=== PATIENT | male | born 1985 | race Two or more races ===

== ENCOUNTER → 2018-12-01 | Outpatient (CLI) | payer BC ==
[2018-12-01 08:14] LABS: Basophils # (auto) 0.1 uL; Basophils % (auto) 1.5 % (0.0-2.0); Eosinophils # (auto) 0.2 uL; Eosinophils % (auto) 4.4 % (0.0-7.0); Hematocrit 46.6 % (41.0-53.0); Hemoglobin 15.8 g/dL (13.5-17.5); Lymphocytes # (auto) 1.2 uL; Lymphocytes % (auto) 24.1 % (10.0-50.0); Mean Corpuscular Hgb Conc. 33.9 g/dL (32.0-36.0); Mean Corpuscular Volume 85.4 fL (80.0-100.0); Monocytes # (auto) 0.4 uL; Monocytes % (auto) 7.5 % (0.0-12.0); Neutrophils # (auto) 3.1 uL; Neutrophils % (auto) 62.5 % (37.0-80.0); Nucleated Red Blood Cells % 0.1 %; Platelet Count (auto) 299 10^3/uL (140-450); Red Blood Cells 5.46 10^6/uL (4.5-5.90); Red Cell Distribution Width 13.2 % (11.8-14.3); White Blood Cell 4.9 10^3/uL (4.4-10.8)
[2018-12-01 08:50] LABS: Albumin 3.9 g/dL (3.4-5.0); Potassium 4.2 mmol/L (3.5-5.1)
[2018-12-01 08:53] LABS: BUN/Creatinine Ratio 16.5; Bilirubin, Total 0.5 mg/dL (0.2-1.0); Total Protein 7.1 g/dL (6.4-8.2)
== END | disposition home or self-care (01) ==
LOC: LAB 07:49
PROVIDERS: ATTEND Internal Medicine
DX: Z00.00 Encounter for general adult medical examination without abnormal findings (principal)
CPT/HCPCS: 36415; 80053; 80061; 82306; 84443; 85025

== ENCOUNTER 2019-10-17 10:04 | Emergency (ER) | payer BC ==
[~2019-10-17] VITALS: Ht 180.3 cm; Wt 81.6 kg
[2019-10-17 10:21] LABS: Urine WBC None Seen /hpf (0 - 3)
[2019-10-17 10:29] LABS: Basophils # (auto) 0 10 ^3/uL (0-0.2); Basophils % (auto) 0.4 % (0.0-2.0); Eosinophils # (auto) 0.1 10 ^3/uL (0-0.8); Eosinophils % (auto) 2.3 % (0.0-7.0); Hematocrit 50.5 % (41.0-53.0); Hemoglobin 17.1 g/dL (13.5-17.5); Lymphocytes # (auto) 1.4 10 ^3/uL (0.4-5.4); Lymphocytes % (auto) 25.4 % (10.0-50.0); Mean Corpuscular Hemoglobin 29.2 pg (28.0-32.0); Mean Corpuscular Hgb Conc. 33.9 g/dL (32.0-36.0); Monocytes # (auto) 0.5 10 ^3/uL (0-1.3); Neutrophils # (auto) 3.4 10 ^3/uL (1.6-8.6); Neutrophils % (auto) 61.9 % (37.0-80.0); Nucleated Red Blood Cells % 0.1 %; Platelet Count (auto) 312 10^3/uL (140-450); Red Blood Cells 5.87 10^6/uL (4.5-5.90); Red Cell Distribution Width 12.8 % (11.8-14.3); White Blood Cell 5.4 10^3/uL (4.4-10.8)
[2019-10-17 10:33] LABS: Urine Bacteria NONE SEEN /hpf (None Seen); Urine Blood Negative /uL (Negative); Urine Specific Gravity 1.006 (1.001-1.035)
[2019-10-17 10:50] LABS: Alanine Aminotransferase 51 U/L (16-61); Albumin 4.2 g/dL (3.4-5.0); Anion Gap 7 (5-15); Aspartate Aminotransferase 25 U/L (15-37); Blood Urea Nitrogen 15 mg/dL (7-18); Calcium 8.8 mg/dL (8.5-10.1); Carbon Dioxide 27 mmol/L (21-32); Chloride 106 mmol/L (98-107); Glucose 113 mg/dL (74-106); Potassium 4.4 mmol/L (3.5-5.1); Sodium 140 mmol/L (136-145)
[2019-10-17 10:54] LABS: Alkaline Phosphatase 51 U/L (45-117); BUN/Creatinine Ratio 14.4; Bilirubin, Total 0.4 mg/dL (0.2-1.0); GFR African American 106 mL/min; GFR Non-African American 88 mL/min; Total Protein 7.7 g/dL (6.4-8.2)
[2019-10-17 13:59] VITALS: BP 112/68
== END 2019-10-17 14:08 | disposition home or self-care (01) ==
LOC: ER 10:04
DX: R07.89 Other chest pain (principal); F41.9 Anxiety disorder, unspecified
CPT/HCPCS: 36415; 71046; 80053; 81001; 83735; 84443; 84484; 85025; 93005

== ENCOUNTER → 2019-11-02 | Emergency (ER) | payer BC ==
[~2019-11-02] VITALS: Ht 177.8 cm; Wt 81.6 kg
[2019-11-02 15:03] VITALS: BP 116/78
[2019-11-02 15:13] LABS: Basophils # (auto) 0 10 ^3/uL (0-0.2); Basophils % (auto) 0.4 % (0.0-2.0); Eosinophils # (auto) 0.1 10 ^3/uL (0-0.8); Eosinophils % (auto) 1.3 % (0.0-7.0); Hematocrit 48.5 % (41.0-53.0); Hemoglobin 16.3 g/dL (13.5-17.5); Lymphocytes # (auto) 1.5 10 ^3/uL (0.4-5.4); Lymphocytes % (auto) 21.7 % (10.0-50.0); Mean Corpuscular Hemoglobin 28.9 pg (28.0-32.0); Mean Corpuscular Hgb Conc. 33.6 g/dL (32.0-36.0); Mean Corpuscular Volume 86.1 fL (80.0-100.0); Monocytes # (auto) 0.6 10 ^3/uL (0-1.3); Neutrophils # (auto) 4.8 10 ^3/uL (1.6-8.6); Neutrophils % (auto) 68.6 % (37.0-80.0); Nucleated Red Blood Cells % 0.1 %; Platelet Count (auto) 305 10^3/uL (140-450); Red Blood Cells 5.63 10^6/uL (4.5-5.90); Red Cell Distribution Width 12.6 % (11.8-14.3)
[2019-11-02 15:22] LABS: Albumin 4.1 g/dL (3.4-5.0); Anion Gap 6 (5-15); Blood Urea Nitrogen 11 mg/dL (7-18); Calcium 8.6 mg/dL (8.5-10.1); Carbon Dioxide 27 mmol/L (21-32); Chloride 105 mmol/L (98-107); Glucose 94 mg/dL (74-106); Potassium 3.9 mmol/L (3.5-5.1); Sodium 138 mmol/L (136-145)
[2019-11-02 15:29] LABS: Alanine Aminotransferase 40 U/L (16-61); Alkaline Phosphatase 43 U/L (45-117); Aspartate Aminotransferase 17 U/L (15-37); BUN/Creatinine Ratio 9.6; Bilirubin, Total 0.7 mg/dL (0.2-1.0); GFR African American 94 mL/min; GFR Non-African American 78 mL/min; Total Protein 7.4 g/dL (6.4-8.2)
== END | disposition home or self-care (01) ==
LOC: ER 14:37
DX: R07.89 Other chest pain (principal); F41.9 Anxiety disorder, unspecified
CPT/HCPCS: 36415; 71046; 80053; 84484; 85025; 93005

== ENCOUNTER → 2023-10-24 | Outpatient (CLI) | payer BC ==
[2023-10-24 08:16] LABS: Urine Bacteria None Seen /hpf (None Seen); Urine WBC None Seen /hpf (0 - 3)
[2023-10-24 08:20] LABS: Basophils # (auto) 0 10 ^3/uL (0-0.2); Basophils % (auto) 0.7 % (0.0-2.0); Eosinophils # (auto) 0.2 10 ^3/uL (0-0.8); Eosinophils % (auto) 3.2 % (0.0-7.0); Hematocrit 44.3 % (41.0-53.0); Hemoglobin 15.1 g/dL (13.5-17.5); Lymphocytes # (auto) 1.2 10 ^3/uL (0.4-5.4); Lymphocytes % (auto) 24.7 % (10.0-50.0); Mean Corpuscular Hemoglobin 29.8 pg (28.0-32.0); Mean Corpuscular Volume 87.7 fL (80.0-100.0); Monocytes # (auto) 0.5 10 ^3/uL (0-1.3); Monocytes % (auto) 9.8 % (0.0-12.0); Neutrophils # (auto) 3.1 10 ^3/uL (1.6-8.6); Neutrophils % (auto) 61.6 % (37.0-80.0); Red Blood Cells 5.06 10^6/uL (4.5-5.90); Red Cell Distribution Width 13.2 % (11.8-14.3)
[2023-10-24 08:23] LABS: Urine Blood Negative /uL (Negative); Urine Clarity Clear (Clear); Urine Color Colorless (Yellow); Urine Protein, UAD Negative (Negative); Urine Specific Gravity 1.002 (1.001-1.035); Urine Urobilinogen Normal (Negative); Urine pH 5.5 (5.0-9.0)
[2023-10-24 09:29] LABS: Alanine Aminotransferase 48 U/L (7-40); Albumin 4.5 g/dL (3.2-4.8); Alkaline Phosphatase 39 U/L (46-116); Anion Gap 9 (5-15); Aspartate Aminotransferase 28 U/L (13-40); BUN/Creatinine Ratio 12.2 (10.0-20.0); Bilirubin, Total 0.7 mg/dL (0.2-1.0); Blood Urea Nitrogen 11 mg/dL (9-23); Calcium 9.4 mg/dL (8.5-10.1); Carbon Dioxide 23 mmol/L (20-30); Chloride 107 mmol/L (98-107); Cholesterol 206 mg/dL (< 200); Glucose 99 mg/dL (74-106); HDL Cholesterol 58 mg/dL (40-59); LDL Cholesterol 130 mg/dL (< 100); Sodium 139 mmol/L (136-145); Total Protein 6.6 g/dL (5.7-8.2); Triglycerides 76 mg/dL (< 150)
== END | disposition home or self-care (01) ==
LOC: LAB 08:01
PROVIDERS: ATTEND Internal Medicine
DX: Z00.01 Encounter for general adult medical examination with abnormal findings (principal); E55.9 Vitamin D deficiency, unspecified; F10.10 Alcohol abuse, uncomplicated
CPT/HCPCS: 36415; 80053; 80061; 81001; 82306; 83036; 84439; 84443; 85025

== ENCOUNTER → 2024-01-24 | Outpatient (CLI) | payer BC ==
[2024-01-24 08:14] LABS: Albumin 4.3 g/dL (3.2-4.8); Bilirubin, Direct 0.2 mg/dL (<0.3); Bilirubin, Total 0.7 mg/dL (0.2-1.0)
[2024-01-24 08:15] LABS: Total Protein 6.4 g/dL (5.7-8.2)
== END | disposition home or self-care (01) ==
LOC: LAB 07:35
PROVIDERS: ATTEND Student in an Organized Health Care Education/Training Program
DX: B35.1 Tinea unguium (principal)
CPT/HCPCS: 36415; 80076

== ENCOUNTER 2024-09-29 22:38 | Inpatient (IN) | payer BC ==
[~2024-09-29] VITALS: Ht 177.8 cm; Wt 75.7 kg
[2024-09-29] MEDS: DICYCLOMINE HCL (10MG/ML) 2 ML AMPULE IM ONE (23:25)
[2024-09-29] MEDS: ONDANSETRON ODT 4 MG TAB PO ONE (23:25)
[2024-09-29 23:33] LABS: Basophils # (auto) 0 10 ^3/uL (0-0.2); Eosinophils # (auto) 0 10 ^3/uL (0-0.8); Eosinophils % (auto) 0.1 % (0.0-7.0); Hematocrit 48.4 % (41.0-53.0); Hemoglobin 16.5 g/dL (13.5-17.5); Lymphocytes # (auto) 0.7 10 ^3/uL (0.4-5.4); Lymphocytes % (auto) 4.8 % (10.0-50.0); Mean Corpuscular Hemoglobin 29.4 pg (28.0-32.0); Mean Corpuscular Hgb Conc. 34.2 g/dL (32.0-36.0); Monocytes % (auto) 6.9 % (0.0-12.0); Neutrophils # (auto) 12.6 10 ^3/uL (1.6-8.6); Neutrophils % (auto) 88.2 % (37.0-80.0); Platelet Count (auto) 362 10^3/uL (140-450); Red Blood Cells 5.63 10^6/uL (4.5-5.90); Red Cell Distribution Width 12.8 % (11.8-14.3); White Blood Cell 14.3 10^3/uL (4.4-10.8)
--- NOTE | 2024-09-29 23:49 | DVH ---
Indication: Diffuse bilateral upper abdominal pain Technique: CT axial images of the abdomen and pelvis are obtained without contrast. Coronal and sagit tarun reformats were obtained. Radiation Dose Information: CTDI volume is 6 mGy. Dose-length product is 465 mGy*cm Comparison: None FINDINGS: There is limited interpretation of the abdomen and pelvis without administration of intravenous contr ast. The lung bases demonstrate no pleural effusion. Adrenal glands, spleen, pancreas unremarkable in shape. Liver unremarkable in shape. No CT evidence for cholelithiasis. The bilateral kidneys demonstrate no hydronephrosis or nephrolithiasis. Stomach is partially distended. Small bowel loops are demonstrating moderate distention in the left a bdomen up to 2.8 cm. Moderate volume stool in the colon. Normal appendix. Bladder partially distended. No free pelvic fluid. No inguinal lymphadenopathy. No aggressive osseous process. Mild thoracolumbar degenerative disc disease. IMPRESSION: 1. No evidence for obstructive uropathy. 2. Moderate distention of small-bowel loops in the left abdomen up to 2.8 cm, which could be secondar y to ileus.
[2024-09-29 23:58] LABS: Alanine Aminotransferase 24 U/L (7-40); Anion Gap 10 (5-15); Aspartate Aminotransferase 18 U/L (13-40); BUN/Creatinine Ratio 10.5 (10.0-20.0); Bilirubin, Total 0.9 mg/dL (0.2-1.0); Blood Urea Nitrogen 12 mg/dL (9-23); Calcium 9.9 mg/dL (8.7-10.4); Carbon Dioxide 25 mmol/L (20-31); Chloride 104 mmol/L (98-107); Sodium 139 mmol/L (136-145); Total Protein 7.1 g/dL (5.7-8.2)
[2024-09-30] VITALS (7 sets, daily range): BP systolic 102–138; BP diastolic 58–85; PULSE 64–78; RESP 16–18; TEMP 97.8–98.7; O2SAT 95–98
[2024-09-30 00:09] LABS: Alkaline Phosphatase 42 U/L (46-116); Glucose 126 mg/dL (74-106); Lipase 102 U/L (12-53); Potassium 3.4 mmol/L (3.5-5.1)
[2024-09-30] MEDS ORDERED: HYDROmorphone HCL 2 MG/ML VL/or syr IV ONE (02:00)
--- NOTE | 2024-09-30 02:07 | ED.PDOC ---
GI ASSESSMENT HPI Comments Patient is a an otherwise healthy 38-year-old male who arrives the ED today for evaluation of bilateral upper belly pain for the past two days. Patient states the pain came on and has been relatively unrelenting. Patient states pain has been severe at night to the point where he can sleep. Patient has been food intolerant and has been barely able to utilize ice chips for the past two days. Patient denies any fever but states extensive nausea and vomiting. Vital signs were stable on arrival. Patient denies any history of intra-abdominal concerns including pancreatic or liver issues. Chief Complaint: Abdominal Pain Time Seen by MD: 22:45 Primary Care Provider: Rachael CALVILLO Reviewed Notes: Nurses Notes Allergies: Coded Allergies: NO KNOWN ALLERGIES (Unverified , 11/02/19) Information Source: Patient Mode of Arrival: Ambulatory Timing: Days Duration: Since onset Prehospital treatment: None Quality: Aching, Burning, Cramping Vomitus: Bilious, Food Particles, Soft, Watery Severity: Moderate Recent: None Recent Hx of: None Pain Location: Diffuse, Epigastric, RUQ, LUQ Modifying Factors: Food Associated sign and symptoms: Nausea, Vomiting, Abdominal Pain Past Medical History PAST MEDICAL HISTORY: Denies Surgical History: Denies all surgeries Family History Family History: Reviewed,noncontributory to illness Social History Smoker: Non-Smoker Alcohol: Occasionally Drugs: Denies Drug Use Lives In: Home Constitutional: denies: chills, diaphoresis, fatigue, fever, malaise, sweats, weakness, others EENTM: denies: blurred vision, double vision, ear bleeding, ear discharge, ear drainage, ear pain, ear ringing, eye pain, eye redness, hearing loss, mouth pain, mouth swelling, nasal discharge, nose bleeding, nose congestion, nose pain, photophobia, tearing, throat pain, throat swelling, voice changes, others Respiratory: denies: cough, hemoptysis, orthopnea, SOB at rest, shortness of breath, SOB with excertion, stridor, wheezing, others Cardiovascular: denies: chest pain, dizzy spells, diaphoresis, Dyspnea on exertion, edema, irregular heart beat, left arm pain, lightheadedness, palpitations, PND, syncope, others Gastrointestinal: reports: abdominal pain, nausea, vomiting; denies: abdomen distended, blood streaked bowels, constipated, diarrhea, dysphagia, difficulty swallowing, hematemesis, melena, poor appetite, poor fluid intake, rectal bleeding, rectal pain, others Genitourinary: denies: burning, dysuria, flank pain, frequency, hematuria, incontinence, penile discharge, penile sore, pain, testicle pain, testicle swelling, urgency, others Neurological: denies: dizziness, fainting, headache, left sided numbness, left sided weakness, numbness, paresthesia, pre-existing deficit, right sided numbness, right sided weakness, seizure, speech problems, tingling, tremors, weakness, others Musculoskeletal: denies: back pain, gout, joint pain, joint swelling, muscle pain, muscle stiffness, neck pain, others Integumetry: denies: bruises, change in color, change in hair/nails, dryness, laceration, lesions, lumps, rash, wounds, others Allergic/Immunocompromised: denies: Difficulty Healing, Frequent Infections, Hives, Itching, others Hematologic/Lymphatic: denies: anemia, blood clots, easy bleeding, easy bruising, swollen glands, others Endocrine: denies: excessive hunger, excessive sweating, excessive thirst, excessive urination, flushing, intolerance to cold, intolerance to heat, unexplained weight gain, unexplained weight loss, others Psychiatric: denies: anxiety, bipolar disorder, depression, hopeless, panic disorder, schizophrenia, sleepless, suicidal, others Physical Exam General Appearance: Moderate Distress (Due to abdominal pain concerns.), Normal HEENT: Normal ENT Inspection, Pharynx Normal, TMs Normal Neck: Full Range of Motion, Non-Tender, Normal, Normal Inspection Respiratory: Chest Non-Tender, Lungs Clear, No Accessory Muscle Use, No Respiratory Distress, Normal Breath Sounds Cardiovascular: No Edema, No JVD, No Murmur, No Gallop, Normal Peripheral Pulses, Regular Rate/Rhythm Breast Exam: Deferred Gastrointestinal: Other ( Diffuse epigastric tenderness to palpation bilaterally. Abdomen was mildly rigid. No pulsatile masses.) Genitalia: Deferred Pelvic: Deferred Rectal: Deferred Extremities: No calf tenderness, Normal capillary refill, Normal inspection, Normal range of motion, Non-tender, No pedal edema Neurologic: Alert, No Motor Deficits, Normal Affect, Normal Mood, No Sensory Deficits Cerebellar Function: Normal Reflexes: Normal Skin: Dry, Normal Color, Warm Lymphatic: No Adenopathy Was a procedure done? Was a procedure done?: No GI differential Dx Differential Diagnosis: Aortic dissection, Bowel Obstruction, Cholangitis, Cholecystitis, Constipation, Gastritis/PUD, Gastroenteritis, Pancreatitis, UTI X-Ray, Labs, Meds, VS Vital Signs Date Time Temp Pulse Resp B/P (MAP) Pulse Ox O2 Delivery O2 Flow Rate FiO2 09/29/24 22:56 98.6 97 16 104/70 (81) 100 98.6 Lab Test 09/30/24 00:09 09/29/24 23:05 Range/Units Troponin I High Sensitivity 34 41 </=54 ng/L White Blood Count 14.3 H 4.4-10.8 10^3/uL Red Blood Count 5.63 4.5-5.90 10^6/uL Hemoglobin 16.5 13.5-17.5 g/dL Hematocrit 48.4 41.0-53.0 % Mean Corpuscular Volume 86.0 80.0-100.0 fL Mean Corpuscular Hemoglobin 29.4 28.0-32.0 pg Mean Corpuscular Hemoglobin Concent 34.2 32.0-36.0 g/dL Red Cell Distribution Width 12.8 11.8-14.3 % Platelet Count 362 140-450 10^3/uL Mean Platelet Volume 7.0 6.9-10.8 fL Neutrophils (%) (Auto) 88.2 H 37.0-80.0 % Lymphocytes (%) (Auto) 4.8 L 10.0-50.0 % Monocytes (%) (Auto) 6.9 0.0-12.0 % Eosinophils (%) (Auto) 0.1 0.0-7.0 % Basophils (%) (Auto) 0.0 0.0-2.0 % Neutrophils # (Auto) 12.6 H 1.6-8.6 10 ^3/uL Lymphocytes # (Auto) 0.7 0.4-5.4 10 ^3/uL Monocytes # (Auto) 1.0 0-1.3 10 ^3/uL Eosinophils # (Auto) 0 0-0.8 10 ^3/uL Basophils # (Auto) 0 0-0.2 10 ^3/uL Nucleated Red Blood Cells 0.0 % Sodium Level 139 136-145 mmol/L Potassium Level 3.4 L 3.5-5.1 mmol/L Chloride Level 104 98-107 mmol/L Carbon Dioxide Level 25 20-31 mmol/L Anion Gap 10 5-15 Blood Urea Nitrogen 12 9-23 mg/dL Creatinine 1.14 0.700-1.30 mg/dL Glomerular Filtration Rate Calc 85 >90 mL/min BUN/Creatinine Ratio 10.5 10.0-20.0 Serum Glucose 126 H 74-106 mg/dL Lactic Acid Level 0.9 0.4-2.0 mmol/L Calcium Level 9.9 8.7-10.4 mg/dL Total Bilirubin 0.9 0.2-1.0 mg/dL Aspartate Amino Transferase (AST) 18 13-40 U/L Alanine Aminotransferase (ALT) 24 7-40 U/L Alkaline Phosphatase 42 L 46-116 U/L Total Protein 7.1 5.7-8.2 g/dL Albumin 5.0 H 3.2-4.8 g/dL Lipase 102 H 12-53 U/L Current Medications Medications (Trade) Dose Ordered Sig/Adams Route Start Time Stop Time Status Last Admin Ondansetron HCl (Zofran Po) 4 mg ONCE ONCE PO 09/29/24 23:00 09/29/24 23:01 DC 09/29/24 23:25 Dicyclomine HCl (Bentyl Injection) 20 mg ONCE ONCE IM 09/29/24 23:00 09/29/24 23:01 DC 09/29/24 23:25 X-Ray, Labs, Meds, VS Comment All studies performed the ED were evaluated by me personally. Laboratories revealed a mild leukocytosis with a mild left shift as well as an elevated lipase indicative of pancreatitis. Imaging studies or nonspecific for pancreatitis but revealed a possible ileus. Patient will be admitted for pain management of his current acute pancreatitis. Time of 1ST Reevaluation: 02:06 Reevaluation 1ST: Improved Consultation: PCP Patient Education/Counseling: Diagnosis, Treatment Family Education/Counseling: Diagnosis, Treatment Departure 1 Departure Time of Disposition: 02:06 Impression: Primary Impression: Acute pancreatitis Disposition: 09 ADMITTED INPATIENT Condition: Stable Discharged With: Self Critical Care Note Critical Care Time?: No Stability Stability form required: No Heart Score Heart Score: Heart Score Response (Comments) Value History Slightly Suspicious 0 EKG Repolarization Disturb 1 Age <45 0 Risk Factors No known risk factors 0 Troponin Normal limit 0 Total 1 MEL LUNDBERG 30, 2025 02:07
[2024-09-30] MEDS ORDERED: MORPHINE SULFATE INJ 2 MG/ml SYRG IV PRN (04:30)
[2024-09-30] MEDS: SODIUM CHLORIDE 0.9% 1,000 ML IV ONE (04:30)
--- NOTE | 2024-09-30 04:33 | DVHHP2 ---
History of Present Illness Reason for Visit: Abdominal pain History of Present Illness 38-year-old male presents for evaluation of abdominal pain. Patient endorses a two day history of sharp abdominal pain across lower abdomen. He associates episodes of nausea with vomiting. He also reports intermittent chills. Denies cardiac or respiratory symptoms. Past Medical History Denies Past Surgical History Denies Family History Noncontributory Smoke: No ALCOHOL: occassional Drugs: None Lives: with Family Review of Systems Review of Systems Review of systems are currently negative otherwise addressed in HPI. Allergies: Coded Allergies: NO KNOWN ALLERGIES (Unverified , 11/02/19) Medications Current Medications Medications Dose Ordered Sig/Adams Route Start Time Stop Time Status Last Admin Dose Admin Pantoprazole Sodium 40 mg DAILY IV 09/30/24 10:00 UNV Ondansetron HCl 4 mg Q4HP PRN IV 09/30/24 04:30 UNV Morphine Sulfate 2 mg Q4HPRN PRN IV 09/30/24 04:30 UNV Exam Vital Signs Vital Signs Date Time Temp Pulse Resp B/P (MAP) Pulse Ox O2 Delivery O2 Flow Rate FiO2 09/30/24 02:35 77 16 95 Room Air* 0 21 21 09/30/24 01:30 98.8 135/76 (95) 98.8 Exam Gen: 38-year-old male in mild distress Skin: Warm, dry, normal color and texture, no rash. HEENT: Normocephalic atraumatic, mucous membranes moist and pink. Neck: Cervical and supraclavicular nodes normal without enlargement, trachea is midline, thyroid gland is normal without masses. Pulmonary: Clear to auscultation and percussion bilaterally. Cardiac: Regular rate and rhythm. No murmur Abdomen: Soft, lower abdominal tenderness, nondistended, bowel sounds present all 4 quadrants, no guarding, no rigidity, no organomegaly. Extremities: No cyanosis, clubbing, no edema Neuro: Cranial nerves II through XII grossly intact, normal affect and speech, no focal motor deficits. Labs/Xrays ORDERING PHYSICIAN: MEL LUNDBERG PAC PROCEDURE(s): ABPL - CT AB PEL WO CON-NO ORAL OR IV REASON: Diffuse bilateral upper abdominal pain ORDER NUMBER(s): [id number], ACCESSION NUMBER(s): [id number] Indication: Diffuse bilateral upper abdominal pain Technique: CT axial images of the abdomen and pelvis are obtained without contrast. Coronal and sagittal reformats were obtained. Radiation Dose Information: CTDI volume is 6 mGy. Dose-length product is 465 mGy*cm Comparison: None FINDINGS: There is limited interpretation of the abdomen and pelvis without administration of intravenous contrast. The lung bases demonstrate no pleural effusion. Adrenal glands, spleen, pancreas unremarkable in shape. Liver unremarkable in shape. No CT evidence for cholelithiasis. The bilateral kidneys demonstrate no hydronephrosis or nephrolithiasis. Stomach is partially distended. Small bowel loops are demonstrating moderate distention in the left abdomen up to 2.8 cm. Moderate volume stool in the colon. Normal appendix. Bladder partially distended. No free pelvic fluid. No inguinal lymphadenopathy. No aggressive osseous process. Mild thoracolumbar degenerative disc disease. IMPRESSION: 1. No evidence for obstructive uropathy. 2. Moderate distention of small-bowel loops in the left abdomen up to 2.8 cm, w hich could be secondary to ileus. Labs Test 09/30/24 00:09 09/29/24 23:05 Range/Units Troponin I High Sensitivity 34 </=54 ng/L White Blood Count 14.3 H 4.4-10.8 10^3/uL Red Blood Count 5.63 4.5-5.90 10^6/uL Hemoglobin 16.5 13.5-17.5 g/dL Hematocrit 48.4 41.0-53.0 % Mean Corpuscular Volume 86.0 80.0-100.0 fL Mean Corpuscular Hemoglobin 29.4 28.0-32.0 pg Mean Corpuscular Hemoglobin Concent 34.2 32.0-36.0 g/dL Red Cell Distribution Width 12.8 11.8-14.3 % Platelet Count 362 140-450 10^3/uL Mean Platelet Volume 7.0 6.9-10.8 fL Neutrophils (%) (Auto) 88.2 H 37.0-80.0 % Lymphocytes (%) (Auto) 4.8 L 10.0-50.0 % Monocytes (%) (Auto) 6.9 0.0-12.0 % Eosinophils (%) (Auto) 0.1 0.0-7.0 % Basophils (%) (Auto) 0.0 0.0-2.0 % Neutrophils # (Auto) 12.6 H 1.6-8.6 10 ^3/uL Lymphocytes # (Auto) 0.7 0.4-5.4 10 ^3/uL Monocytes # (Auto) 1.0 0-1.3 10 ^3/uL Eosinophils # (Auto) 0 0-0.8 10 ^3/uL Basophils # (Auto) 0 0-0.2 10 ^3/uL Nucleated Red Blood Cells 0.0 % Sodium Level 139 136-145 mmol/L Potassium Level 3.4 L 3.5-5.1 mmol/L Chloride Level 104 98-107 mmol/L Carbon Dioxide Level 25 20-31 mmol/L Anion Gap 10 5-15 Blood Urea Nitrogen 12 9-23 mg/dL Creatinine 1.14 0.700-1.30 mg/dL Glomerular Filtration Rate Calc 85 >90 mL/min BUN/Creatinine Ratio 10.5 10.0-20.0 Serum Glucose 126 H 74-106 mg/dL Lactic Acid Level 0.9 0.4-2.0 mmol/L Calcium Level 9.9 8.7-10.4 mg/dL Total Bilirubin 0.9 0.2-1.0 mg/dL Aspartate Amino Transferase (AST) 18 13-40 U/L Alanine Aminotransferase (ALT) 24 7-40 U/L Alkaline Phosphatase 42 L 46-116 U/L Total Protein 7.1 5.7-8.2 g/dL Albumin 5.0 H 3.2-4.8 g/dL Lipase 102 H 12-53 U/L Assessment/Plan Assessment/Plan Assessment Acute abdominal pain Possible ileus Leukocytosis Plan Admit the patient to [facility] to the hospitalist NPO Maintenance IV fluids Pain management GI consult Rocephin Continue treatment per orders. Plan discussed with: Patient My Orders Orders - ROB GERARD Procedure Category Date Status Time * Gi Dvh Project Landscape Architect CONS 09/30/24 Transmitted 04:26 Pantoprazole PHA 09/30/24 Logged (Protonix) 10:00 Sodium Chloride 0.9% PHA 09/30/24 Logged 04:30 Basic Metabolic Panel LAB 10/01/24 Verified 04:00 Admit ADMIT 09/30/24 Transmitted 04:26 Ondansetron Hcl PHA 09/30/24 Logged (Zofran) 04:30 Complete Blood Count LAB 10/01/24 Verified 04:00 Npo (Nothing By DIET 09/30/24 Transmitted Mouth) Diet Breakfast Condition: Stable DON 09/30/24 In Process 04:26 Bedrest With Bathroom DON 09/30/24 In Process Privileg 04:26 Morphine Sulfate PHA 09/30/24 Logged Injection 04:30 Date of Service: Sep 30, 2024 Billing Provider: ROB GERARD Common Visit Codes: [id number] INP/OBS CARE (MOD) ROB GERARD Sep 30, 2024 04:33
[2024-09-30] MEDS ORDERED: [UNRECOGNIZED DRUG - CODE] PO (06:56)
[2024-09-30] MEDS: ONDANSETRON HCL 4 MG/2 ML VIAL IV PRN (08:43)
[2024-09-30] MEDS: PANTOPRAZOLE 40 MG/10 ML VIAL INJ IV SCH (08:43)
[2024-09-30] MEDS: cefTRIAXone 1GM/50ML D5W 50 ML IV SCH (09:00)
[2024-09-30 12:16] LABS: Urine Bacteria None Seen /hpf (None Seen)
[2024-09-30 12:27] LABS: Urine Blood Negative /uL (Negative); Urine Clarity Clear (Clear); Urine Color Yellow (Yellow); Urine Mucus FEW (None Seen); Urine Protein, UAD 1+ (Negative); Urine Squamous Epithelial Cell None Seen /hpf (<5); Urine Urobilinogen Normal (Negative); Urine WBC 4 /HPF (0-3); Urine pH 6.5 (5.0-9.0)
[2024-09-30 12:59] LABS: Cannabinoid Screen, Urine Pos (NEGATIVE)
[2024-09-30 13:01] LABS: Amphetamine Screen, Urine Neg (NEGATIVE); Barbiturate Scree,Urine Neg (NEGATIVE); Benzodiazephine Screen, Urine Neg (NEGATIVE); Cocaine Screen, Urine Neg (NEGATIVE); Opiate Scree,Urine Neg (NEGATIVE); Phencyclidine Screen, Urine Neg (NEGATIVE)
[2024-09-30] MEDS: metroNIDAZOLE 500MG/100ML 100 ML IV SCH (13:03)
[2024-09-30] MEDS ORDERED: PANTOPRAZOLE 40 MG/10 ML VIAL INJ IV ONE (15:30)
--- NOTE | 2024-09-30 15:30 | DVHPN2 ---
Subjective 09/30 patient continues to have abdominal pain, decreased p.o. tolerance. Likely gastroenteritis. GI on board. CTA showing ileus. Lipase elevated. We will continue treatment with IV antibiotics, advance diet to clear liquids diet. IV fluids for resuscitation. IV pain control p.r.n. analgesia. Reviewed: H&P Changes from previous H/P or p: No Changes General: Per HPI Objective Vitals Vital Signs Date Time Temp Pulse Resp B/P (MAP) Pulse Ox O2 Delivery O2 Flow Rate FiO2 09/30/24 13:00 98.6 64 18 131/79 (96) 98 98.6 09/30/24 08:00 Room Air* 0 21 Exam GEN: Healthy appearing, well-developed, NAD. HEENT: NC/AT; MMM. CV: RRR, no m/r/g. LUNGS: CTAB, no w/r/c. ABD: Tender to palpation right lower quadrant and epigastrium, hypoactive bowel sounds EXT: skin Warm, well perfused. no rashes. No clubbing, cyanosis, or edema. NEURO: Ambulating with no limitations. No focal deficits. Medications Current Medications Medications Dose Ordered Sig/Adams Route Start Time Stop Time Status Last Admin Dose Admin Pantoprazole Sodium 40 mg DAILY IV 09/30/24 10:00 09/30/24 08:43 40 MG Ondansetron HCl 4 mg Q4HP PRN IV 09/30/24 04:30 09/30/24 08:43 4 MG Morphine Sulfate 2 mg Q4HPRN PRN IV 09/30/24 04:30 Ceftriaxone Sodium 50 ml @ 100 mls/hr DAILY@09 IV 09/30/24 09:00 09/30/24 09:00 100 MLS/HR Metronidazole 100 ml @ 100 mls/hr Q8HR IV 09/30/24 14:00 09/30/24 13:03 100 MLS/HR Laboratory Results Laboratory Tests 09/29/24 23:05 Chemistry Test 09/29/24 23:05 Albumin 5.0 g/dL (3.2-4.8) H Calcium Level 9.9 mg/dL (8.7-10.4) Total Protein 7.1 g/dL (5.7-8.2) Lipid panel Test 09/29/24 23:05 Lipase 102 U/L (12-53) H LFT Test 09/29/24 23:05 Alanine Aminotransferase (ALT) 24 U/L (7-40) Alkaline Phosphatase 42 U/L (46-116) L Aspartate Amino Transferase (AST) 18 U/L (13-40) Total Bilirubin 0.9 mg/dL (0.2-1.0) Urinalysis Test 09/30/24 11:45 Urine Color Yellow (Yellow) Urine Clarity Clear (Clear) Urine pH 6.5 (5.0-9.0) Urine Specific [place] 1.040 (1.001-1.035) Urine Protein 1+ (Negative) H Urine Ketones 3+ (Negative) H Urine Blood Negative /uL (Negative) Urine Nitrite Negative (Negative) Urine Bilirubin Negative (Negative) Urine Urobilinogen Normal mg/dL (Negative) Urine Leukocyte Esterase Negative /uL (Negative) Urine RBC 1 /hpf (0 - 3) Urine Microscopic WBC 4 /HPF (0-3) H Urine Squamous Epithelial Cells None seen /hpf (<5) Urine Bacteria None seen /hpf (None Seen) Urine Mucus Few (None Seen) Urine Glucose Normal mg/dL (Normal) Labs and/or images reviewed: Labs reviewed by me, Image(s) reviewed by me Assessment/Plan Assessment/Plan 09/30 patient continues to have abdominal pain, decreased p.o. tolerance. Likely gastroenteritis. GI on board. CTA showing ileus. Lipase elevated. We will continue treatment with IV antibiotics, advance diet to clear liquids diet. IV fluids for resuscitation. IV pain control p.r.n. analgesia. Bowel ileus due to below Acute gastroenteritis, infectious etiology likely Acute pancreatitis, possible Intractable abdominal pain Intractable nausea P.o. intolerance Acute abdomen ruled out. Clear liquid diet Maintenance IV fluids IV pain control analgesia p.r.n. GI following Ceftriaxone Flagyl antibiotics IV Clear liquid diet DVT prophylaxis patella score low GI prophylaxis Protonix IV Med surge Full code Plan discussed with: Patient My Orders Orders - ROSLYN DURAN MD Procedure Category Date Status Time Kub Abdomen Single XY 09/30/24 Taken View 11:18 Metronidazole PHA 09/30/24 In Process 500mg/100ml (Flagyl 14:00 Date of Service: Sep 30, 2024 Billing Provider: ROSLYN DURAN MD Common Visit Codes: [id number] INP/OBS CARE(HIGH) ROSLYN DURAN MD Sep 30, 2024 15:30
--- NOTE | 2024-09-30 22:00 | DVHINCON2 ---
Date of service: Sep 30, [address] Ayala Reason for Consultation ETOH related pancreatitis History of Present Illness 38-year-old male presents for evaluation of abdominal pain. Patient endorses a two day history of sharp abdominal pain across mid abdomen. He associates episodes of nausea with bilious vomiting. He also reports intermittent chills. Denies cardiac or respiratory symptoms. Patient reports to drinking two beers prior to presentation. He has not had a prior episode of pancreatitis. Abdominal x-ray was suggestive of possible mild ileus. Patient is seen at bedside and he is resting comfortably abdominal pain is improving. There was no nausea or vomiting today Patient is tolerating ice chips. No bowel movement recorded yet Past Medical History Past Medical History ETOH and marijuana use Family History: Cardiovascular disease G8 MOTHER Gastrointestinal disorder Allergies: Coded Allergies: NO KNOWN ALLERGIES (Unverified , 11/02/19) Home Meds Reported Medications Doxycycline Hyclate (Doxycycline Hyclate) 20 Mg Tab, 1 TAB PO BID 09/30/24 Current Medications Current Medications Medications (Trade) Dose Ordered Sig/Adams Route PRN Reason Start Time Stop Time Status Last Admin Pantoprazole Sodium (Protonix) 40 mg DAILY IV 09/30/24 10:00 09/30/24 15:33 DC 09/30/24 08:43 Ondansetron HCl (Zofran) 4 mg Q4HP PRN IV NAUSEA / VOMITING 09/30/24 04:30 09/30/24 08:43 Morphine Sulfate 2 mg Q4HPRN PRN IV SEVERE PAIN (7-10 PAIN SCALE) 09/30/24 04:30 Ceftriaxone Sodium 50 ml @ 100 mls/hr DAILY@09 IV 09/30/24 09:00 09/30/24 09:00 Metronidazole 100 ml @ 100 mls/hr Q8HR IV 09/30/24 14:00 09/30/24 21:05 Pantoprazole Sodium (Protonix) 40 mg DAILY IV 10/01/24 10:00 Vital Signs Vital Signs Date Time Temp Pulse Resp B/P (MAP) Pulse Ox O2 Delivery O2 Flow Rate FiO2 09/30/24 20:02 Room Air* 0 21 09/30/24 16:55 98.0 64 18 115/68 (84) 98 98.0 Physical Exam Gen: 38-year-old male in no distress Skin: Warm, dry, normal color and texture, no rash. HEENT: Normocephalic atraumatic, mucous membranes moist and pink. Neck: Cervical and supraclavicular nodes normal without enlargement, trachea is midline, thyroid gland is normal without masses. Pulmonary: Clear to auscultation and percussion bilaterally. Cardiac: Regular rate and rhythm. No murmur Abdomen: Soft, lower abdominal tenderness, nondistended, bowel sounds present all 4 quadrants, no guarding, no rigidity, no organomegaly. Extremities: No cyanosis, clubbing, no edema Neuro: Cranial nerves II through XII grossly intact, normal affect and speech, no focal motor deficits. Labs/Diagnostic Data Labs Test 09/30/24 11:45 09/30/24 05:36 09/29/24 23:05 Range/Units Urine Color Yellow Yellow Urine Clarity Clear Clear Urine pH 6.5 5.0-9.0 Urine Specific [place] 1.040 H 1.001-1.035 Urine Protein 1+ H Negative Urine Ketones 3+ H Negative Urine Blood Negative Negative /uL Urine Nitrite Negative Negative Urine Bilirubin Negative Negative Urine Urobilinogen Normal Negative mg/dL Urine Leukocyte Esterase Negative Negative /uL Urine RBC 1 0 - 3 /hpf Urine Microscopic WBC 4 H 0-3 /HPF Urine Squamous Epithelial Cells None seen <5 /hpf Urine Bacteria None seen None Seen /hpf Urine Mucus Few None Seen Urine Glucose Normal Normal mg/dL Urine Opiates Screen Neg NEGATIVE Urine Fentanyl Screen Neg NEGATIVE Urine Barbiturates Screen Neg NEGATIVE Urine Phencyclidine Screen Neg NEGATIVE Urine Amphetamines Screen Neg NEGATIVE Urine Benzodiazepines Screen Neg NEGATIVE Urine Cocaine Screen Neg NEGATIVE Urine Cannabinoids Screen Pos NEGATIVE Troponin I High Sensitivity 28 </=54 ng/L White Blood Count 14.3 H 4.4-10.8 10^3/uL Red Blood Count 5.63 4.5-5.90 10^6/uL Hemoglobin 16.5 13.5-17.5 g/dL Hematocrit 48.4 41.0-53.0 % Mean Corpuscular Volume 86.0 80.0-100.0 fL Mean Corpuscular Hemoglobin 29.4 28.0-32.0 pg Mean Corpuscular Hemoglobin Concent 34.2 32.0-36.0 g/dL Red Cell Distribution Width 12.8 11.8-14.3 % Platelet Count 362 140-450 10^3/uL Mean Platelet Volume 7.0 6.9-10.8 fL Neutrophils (%) (Auto) 88.2 H 37.0-80.0 % Lymphocytes (%) (Auto) 4.8 L 10.0-50.0 % Monocytes (%) (Auto) 6.9 0.0-12.0 % Eosinophils (%) (Auto) 0.1 0.0-7.0 % Basophils (%) (Auto) 0.0 0.0-2.0 % Neutrophils # (Auto) 12.6 H 1.6-8.6 10 ^3/uL Lymphocytes # (Auto) 0.7 0.4-5.4 10 ^3/uL Monocytes # (Auto) 1.0 0-1.3 10 ^3/uL Eosinophils # (Auto) 0 0-0.8 10 ^3/uL Basophils # (Auto) 0 0-0.2 10 ^3/uL Nucleated Red Blood Cells 0.0 % Sodium Level 139 136-145 mmol/L Potassium Level 3.4 L 3.5-5.1 mmol/L Chloride Level 104 98-107 mmol/L Carbon Dioxide Level 25 20-31 mmol/L Anion Gap 10 5-15 Blood Urea Nitrogen 12 9-23 mg/dL Creatinine 1.14 0.700-1.30 mg/dL Glomerular Filtration Rate Calc 85 >90 mL/min BUN/Creatinine Ratio 10.5 10.0-20.0 Serum Glucose 126 H 74-106 mg/dL Lactic Acid Level 0.9 0.4-2.0 mmol/L Calcium Level 9.9 8.7-10.4 mg/dL Total Bilirubin 0.9 0.2-1.0 mg/dL Aspartate Amino Transferase (AST) 18 13-40 U/L Alanine Aminotransferase (ALT) 24 7-40 U/L Alkaline Phosphatase 42 L 46-116 U/L Total Protein 7.1 5.7-8.2 g/dL Albumin 5.0 H 3.2-4.8 g/dL Lipase 102 H 12-53 U/L Problems(with codes): (1) Ileus (2) Leukocytosis (3) Anxiety (4) Acute pancreatitis Plan/Recommendation Plan Give the patient a trial of clear liquid diet Repeat KUB to further evaluate ileus Patient was counseled for discontinuing alcohol Continue supportive care Monitor labs Plan discussed with: Patient, Other (Nurse and FELIBERTO Moon MD Sep 30, 2024 21:59
--- NOTE | 2024-09-30 22:39 | DVH ---
CHEST RADIOGRAPH Indication: eval interval changes of ileus Technique: Single frontal view of the chest was obtained Comparison: None FINDINGS: Lines and Tubes: None Lungs: No focal consolidation. Pleura: No effusion. No pneumothorax. Cardiomediastinal contours: Unremarkable Bones: No acute osseous abnormality. IMPRESSION: 1. No acute cardiopulmonary disease. HS:Y
[2024-10-01 01:00] VITALS: BP 126/79; PULSE 58; RESP 20; TEMP 98.9; O2SAT 95
[2024-10-01 05:00] VITALS: BP 107/64; PULSE 66; RESP 19; TEMP 98.8; O2SAT 96
[2024-10-01 06:14] LABS: Basophils # (auto) 0 10 ^3/uL (0-0.2); Basophils % (auto) 0.2 % (0.0-2.0); Eosinophils # (auto) 0 10 ^3/uL (0-0.8); Eosinophils % (auto) 0.1 % (0.0-7.0); Hematocrit 44.7 % (41.0-53.0); Hemoglobin 15.4 g/dL (13.5-17.5); Lymphocytes # (auto) 1.2 10 ^3/uL (0.4-5.4); Lymphocytes % (auto) 13.9 % (10.0-50.0); Mean Corpuscular Hemoglobin 29.8 pg (28.0-32.0); Mean Corpuscular Hgb Conc. 34.5 g/dL (32.0-36.0); Mean Corpuscular Volume 86.5 fL (80.0-100.0); Monocytes % (auto) 11.6 % (0.0-12.0); Neutrophils # (auto) 6.5 10 ^3/uL (1.6-8.6); Neutrophils % (auto) 74.2 % (37.0-80.0); Platelet Count (auto) 306 10^3/uL (140-450); Red Blood Cells 5.17 10^6/uL (4.5-5.90); Red Cell Distribution Width 12.6 % (11.8-14.3); White Blood Cell 8.7 10^3/uL (4.4-10.8)
[2024-10-01 06:31] LABS: Alanine Aminotransferase 20 U/L (7-40); Albumin 4.3 g/dL (3.2-4.8); Anion Gap 8 (5-15); Aspartate Aminotransferase 23 U/L (13-40); BUN/Creatinine Ratio 11.6 (10.0-20.0); Blood Urea Nitrogen 10 mg/dL (9-23); Carbon Dioxide 27 mmol/L (20-31); Chloride 105 mmol/L (98-107); Glucose 102 mg/dL (74-106); Lipase 39 U/L (12-53); Potassium 3.7 mmol/L (3.5-5.1); Sodium 140 mmol/L (136-145)
[2024-10-01 06:32] LABS: Bilirubin, Total 1.1 mg/dL (0.2-1.0)
[2024-10-01 06:34] LABS: Alkaline Phosphatase 35 U/L (46-116)
--- NOTE | 2024-10-01 06:44 | DVH ---
ABDOMINAL RADIOGRAPH Indication: ILEUS CHANGES Technique: Single frontal view of the abdomen was obtained Comparison: CT of the abdomen pelvis performed on 09/29/2024 FINDINGS: Lines and tubes: None There is a nonobstructive bowel gas pattern. No supine radiographic evidence of pneumoperitoneum. Bon y structures unremarkable. IMPRESSION: 1. Nonobstructive bowel gas pattern.
[2024-10-01 09:00] VITALS: BP 110/68; PULSE 67; RESP 15; TEMP 97.9; O2SAT 96
[2024-10-01] MEDS: PANTOPRAZOLE 40 MG/10 ML VIAL INJ IV SCH (10:30)
--- NOTE | 2024-10-01 12:16 | ECG ---
[facility] Test Date: 2024-09-30 Test Time: 02:22:04 Pat Name: YOLANDA DIAZ Department: ER Room: 0285 Gender: M Student Driving Instructor: : 1985 Requested By: MEL LUNDBERG Order Number: [id number] Reading MD: Measurements Intervals [place] Rate: 60 P: 54 WV: 154 QRS: -69 QRSD: 110 T: 36 QT: 447 QTc: 447 Interpretive Statements Sinus rhythm LAD, consider left anterior fascicular block Please click the below link to view image of tracing.
[2024-10-01 13:00] VITALS: BP 114/70; PULSE 67; RESP 20; TEMP 98.5; O2SAT 97
[2024-10-01] MEDS ORDERED: THIA100T10 PO (13:15)
[2024-10-01] MEDS ORDERED: MULTTAB99 PO (13:15)
[2024-10-01] MEDS ORDERED: ZOFR4T PO (13:15)
[2024-10-01] MEDS ORDERED: PANT40TA2 PO (13:15)
[2024-10-01] MEDS ORDERED: FOLI-119 PO (13:15)
[2024-10-01 13:59] VITALS: BP 114/70; PULSE 67; RESP 20; TEMP 36.9; O2SAT 97
--- NOTE | 2024-10-01 18:33 | DVHDSRES ---
Discharge Summary Date of Admission Resident Creating Document: BHAKTI ASHLEY RESIDENT Sep 30, 2024 at 04:26 Date of Discharge: Oct 01, 2024 Admitting Diagnosis Abdominal pain Labs/Diagnostic Data: Laboratory Results Test 10/01/24 04:54 09/30/24 11:45 09/30/24 05:36 09/29/24 23:05 White Blood Count 8.7 10^3/uL (4.4-10.8) Red Blood Count 5.17 10^6/uL (4.5-5.90) Hemoglobin 15.4 g/dL (13.5-17.5) Hematocrit 44.7 % (41.0-53.0) Mean Corpuscular Volume 86.5 fL (80.0-100.0) Mean Corpuscular Hemoglobin 29.8 pg (28.0-32.0) Mean Corpuscular Hemoglobin Concent 34.5 g/dL (32.0-36.0) Red Cell Distribution Width 12.6 % (11.8-14.3) Platelet Count 306 10^3/uL (140-450) Mean Platelet Volume 7.2 fL (6.9-10.8) Neutrophils (%) (Auto) 74.2 % (37.0-80.0) Lymphocytes (%) (Auto) 13.9 % (10.0-50.0) Monocytes (%) (Auto) 11.6 % (0.0-12.0) Eosinophils (%) (Auto) 0.1 % (0.0-7.0) Basophils (%) (Auto) 0.2 % (0.0-2.0) Neutrophils # (Auto) 6.5 10 ^3/uL (1.6-8.6) Lymphocytes # (Auto) 1.2 10 ^3/uL (0.4-5.4) Monocytes # (Auto) 1.0 10 ^3/uL (0-1.3) Eosinophils # (Auto) 0 10 ^3/uL (0-0.8) Basophils # (Auto) 0 10 ^3/uL (0-0.2) Nucleated Red Blood Cells 0.0 % Sodium Level 140 mmol/L (136-145) Potassium Level 3.7 mmol/L (3.5-5.1) Chloride Level 105 mmol/L (98-107) Carbon Dioxide Level 27 mmol/L (20-31) Anion Gap 8 (5-15) Blood Urea Nitrogen 10 mg/dL (9-23) Creatinine 0.86 mg/dL (0.700-1.30) Glomerular Filtration Rate Calc 114 mL/min (>90) BUN/Creatinine Ratio 11.6 (10.0-20.0) Serum Glucose 102 mg/dL (74-106) Calcium Level 9.0 mg/dL (8.7-10.4) Total Bilirubin 1.1 mg/dL (0.2-1.0) Aspartate Amino Transferase (AST) 23 U/L (13-40) Alanine Aminotransferase (ALT) 20 U/L (7-40) Alkaline Phosphatase 35 U/L (46-116) Total Protein 6.0 g/dL (5.7-8.2) Albumin 4.3 g/dL (3.2-4.8) Lipase 39 U/L (12-53) Urine Color Yellow (Yellow) Urine Clarity Clear (Clear) Urine pH 6.5 (5.0-9.0) Urine Specific [place] 1.040 (1.001-1.035) Urine Protein 1+ (Negative) Urine Ketones 3+ (Negative) Urine Blood Negative /uL (Negative) Urine Nitrite Negative (Negative) Urine Bilirubin Negative (Negative) Urine Urobilinogen Normal mg/dL (Negative) Urine Leukocyte Esterase Negative /uL (Negative) Urine RBC 1 /hpf (0 - 3) Urine Microscopic WBC 4 /HPF (0-3) Urine Squamous Epithelial Cells None seen /hpf (<5) Urine Bacteria None seen /hpf (None Seen) Urine Mucus Few (None Seen) Urine Glucose Normal mg/dL (Normal) Urine Opiates Screen Neg (NEGATIVE) Urine Fentanyl Screen Neg (NEGATIVE) Urine Barbiturates Screen Neg (NEGATIVE) Urine Phencyclidine Screen Neg (NEGATIVE) Urine Amphetamines Screen Neg (NEGATIVE) Urine Benzodiazepines Screen Neg (NEGATIVE) Urine Cocaine Screen Neg (NEGATIVE) Urine Cannabinoids Screen Pos (NEGATIVE) Troponin I High Sensitivity 28 ng/L (</=54) Lactic Acid Level 0.9 mmol/L (0.4-2.0) Other Laboratory Tests 10/01/24 04:54 Brief Hx & Hospital Course: This is a 38-year-old male presents for evaluation of abdominal pain. Past Medical History: Denies Past Surgical History: Denies Family History: Noncontributory SH: Smoke: No. ALCOHOL: occassional. Drugs: None. Lives: with Family Patient endorses a two day history of sharp abdominal pain across lower abdomen. He associates episodes of nausea with vomiting. He also reports intermittent chills. Denies cardiac or respiratory symptoms. A chest x-ray was negative for any acute cardiopulmonary disease. He has a CT of the abdomen performed which demonstrated ileus, ruled out any significant acute abnormality such as pancreatitis. Patient's lipase level were 102 and then came down to 39. All the other blood work was unremarkable. On my initial assessment, patient was seen and examined at bedside. He currently states feeling well, denies any significant shortness of breath, chest pain, abdominal pain, dysuria, nausea, vomiting, diarrhea, constipation, dizziness, lightheadedness. He's currently tolerating diet. A repeat KUB showed nonobstructive bowel gas. Patient tolerated diet without any issue. He was ambulatory. He had significant clinical improvement from admission. He was consulted on stopped drinking alcohol. Physical examination as below: General: Awake, alert, comfortable appearing, in no acute distress. HEENT: Head is normocephalic and atraumatic. Pupils are equal, round, and reactive to light. Extraocular muscles are intact. No nasal discharge. No facial trauma. Intraoral exam shows moist mucous membranes with no tonsillar enlargement or exudate. Neck: Supple with no cervical lymphadenopathy. Heart: Regular rate without murmur, rub, or gallop. Lungs: Equal breath sounds bilaterally with no wheezing, rales, or rhonchi. There is no chest wall tenderness or instability. Abdomen: No external sign of injury. Bowel sounds are present. Abdomen is soft, nontender. No rebound, no guarding, no rigidity. There are no palpable masses. There is no flank pain on exam. Extremities: Strong peripheral pulses. There is no clubbing, no cyanosis, and no edema. Skin: No rash. Neurologic: Cranial nerves II-XII intact without motor, sensory, or cerebellar deficit, no asterixis. Patient will be discharge home, he will continue home medications as prescribed. Continue folic acid, thiamine and MVI p.o., he will also continue taking Zofran as needed, Protonix. He will follow-up with PCP in 1-2 weeks. Patient verbalized understanding and agree with the DC plan, we spent over 30 minutes explaining the plan. Consults/Reason for consult Planner Intern was consulted due to possible pancreatitis Operations or Procedures [facility] [id number] [place] [id number] Ph: [phone] DIAGNOSTIC IMAGING Diagnostic Imaging Report : [id number] Signed PATIENT: YOLANDA DIAZ ACCT: [id number] UNIT: [id number] : 1985 LOC: ER ROOM / BED: / AGE / SEX: 38 / M ADM STATUS: REG ER SERVICE 58 ORDERING PHYSICIAN: MEL LUNDBERG PAC PROCEDURE(s): ABPL - CT AB PEL WO CON-NO ORAL OR IV REASON: Diffuse bilateral upper abdominal pain ORDER NUMBER(s): [id number], ACCESSION NUMBER(s): [id number] Indication: Diffuse bilateral upper abdominal pain Technique: CT axial images of the abdomen and pelvis are obtained without contrast. Coronal and sagittal reformats were obtained. Radiation Dose Information: CTDI volume is 6 mGy. Dose-length product is 465 mGy*cm Comparison: None FINDINGS: There is limited interpretation of the abdomen and pelvis without administration of intravenous contrast. The lung bases demonstrate no pleural effusion. Adrenal glands, spleen, pancreas unremarkable in shape. Liver unremarkable in shape. No CT evidence for cholelithiasis. The bilateral kidneys demonstrate no hydronephrosis or nephrolithiasis. Stomach is partially distended. Small bowel loops are demonstrating moderate distention in the left abdomen up to 2.8 cm. Moderate volume stool in the colon. Normal appendix. Bladder partially distended. No free pelvic fluid. No inguinal lymphadenopathy. No aggressive osseous process. Mild thoracolumbar degenerative disc disease. IMPRESSION: 1. No evidence for obstructive uropathy. 2. Moderate distention of small-bowel loops in the left abdomen up to 2.8 cm, which could be secondary to ileus. ATED BY: AMANDA HANCOCK MD DICTATED DATE/TIME: 09/29/242345 SIGNED BY: AMANDA HANCOCK MD SIGNED DATE/TIME: 09/29/242345 CC: [facility] [facility] [id number] [place] [id number] Ph: [phone] DIAGNOSTIC IMAGING Diagnostic Imaging Report : [id number] Signed PATIENT: YOLANDA DIAZ I ACCT: [id number] UNIT: [id number] : 1985 LOC: [facility] ROOM / BED: [facility] / A AGE / SEX: 38 / M ADM STATUS: ADM IN SERVICE 1118 ORDERING PHYSICIAN: ROSLYN DURAN MD PROCEDURE(s): CXR1 - CHEST XRAY 1 VIEW REASON: eval interval changes of ileus ORDER NUMBER(s): [id number], ACCESSION NUMBER(s): [id number] CHEST RADIOGRAPH Indication: eval interval changes of ileus Technique: Single frontal view of the chest was obtained Comparison: None FINDINGS: Lines and Tubes: None Lungs: No focal consolidation. Pleura: No effusion. No pneumothorax. Cardiomediastinal contours: Unremarkable Bones: No acute osseous abnormality. IMPRESSION: 1. No acute cardiopulmonary disease. HS:Y ATED BY: MYA POPE Jr., DO DICTATED DATE/TIME: 09/30/242236 SIGNED BY: MYA POPE Jr., SIGNED DATE/TIME: 09/30/242236 CC: [place] [id number] Ph: [phone] DIAGNOSTIC IMAGING Diagnostic Imaging Report : [id number] Signed PATIENT: YOLANDA DIAZ I ACCT: [id number] UNIT: [id number] : 1985 LOC: [facility] ROOM / BED: [facility] A AGE / SEX: 38 / M ADM STATUS: ADM IN SERVICE 0800 ORDERING PHYSICIAN: ROB GERARD PROCEDURE(s): KUB - KUB ABDOMEN SINGLE VIEW REASON: ILEUS CHANGES ORDER NUMBER(s): [id number], ACCESSION NUMBER(s): [id number] ABDOMINAL RADIOGRAPH Indication: ILEUS CHANGES Technique: Single frontal view of the abdomen was obtained Comparison: CT of the abdomen pelvis performed on 09/29/2024 FINDINGS: Lines and tubes: None There is a nonobstructive bowel gas pattern. No supine radiographic evidence of pneumoperitoneum. Bony structures unremarkable. IMPRESSION: 1. Nonobstructive bowel gas pattern. ATED BY: HEATHER PAUL MD DICTATED DATE/TIME: 10/01/24641 SIGNED BY: HEATHER PAUL MD SIGNED DATE/TIME: 10/01/24641 CC: Condition at Discharge: Good Final Diagnosis/Problems List gastroenteritis, likely viral ileus ruled out pancreatitis intractable nausea due to above, improved alcohol abuse Discharge Disposition: Home Discharge Instruct/Medications Diet: See Comment Diet comment: soft diet Activity: No Restrictions, As Tolerated Follow Up/Referral: fu with pcp in 1-2 weeks Medications: continue meds as prescribed Discharge Statement: "Patient was advised to return to the ER or call 911 if any headaches, dizziness, shortness of breath, chest pain, abdominal pain, bleeding, fevers, or worsening of medical condition. Patient was counseled about treatment plan, medications, possible side effects, patientverbalized understanding. All questions were answered to the best of my ability. This discharge took greater then 30 minutes in planning, reviewing documentation, counseling the patient, and discussing with other team members." ASSESSMENT ASSESSMENT Assessment gastroenteritis Date of Service: Oct 01, 2024 Billing Provider: ANIYAH HICKS MD Common Visit Codes: 08238-BZY/OBS DISCH DAY >30min BHAKTI ASHLEY RESIDENT Oct 01, 2024 18:33 ANIYAH HICKS MD Oct 02, 2024 10:58
== END 2024-10-01 15:23 | disposition home or self-care (01) | DRG 392 ==
LOC: ER 22:38 → OVERFLOW 09-30 04:26 → WEST WING 09-30 06:30
PROVIDERS: ADMIT Internal Medicine; ATTEND Internal Medicine Gastroenterology
DX: A08.4 Viral intestinal infection, unspecified (principal); K56.7 Ileus, unspecified; F12.90 Cannabis use, unspecified, uncomplicated; F10.10 Alcohol abuse, uncomplicated; Y90.9 Presence of alcohol in blood, level not specified; Z82.49 Family history of ischemic heart disease and other diseases of the circulatory system; Z79.2 Long term (current) use of antibiotics; Z79.899 Other long term (current) drug therapy
CPT/HCPCS: 36415; 71045; 74018; 74176; 80053; 80307; 81001; 83605; 83690; 84484; 85025; 96360; 96372; G0378; J2405; J2470; J3490; Q0162

== ENCOUNTER 2025-02-25 06:51 | Outpatient (CLI) | payer BC ==
[~2025-02-25 06:51] MED LIST: FOLI-119 PO; MULTTAB99 PO; PANT40TA2 PO; THIA100T10 PO; ZOFR4T PO
[2025-02-25 07:14] LABS: Hematocrit 45.0 % (41.0-53.0); Hemoglobin 15.1 g/dL (13.5-17.5); Mean Corpuscular Hemoglobin 29.0 pg (28.0-32.0); Mean Corpuscular Volume 86.3 fL (80.0-100.0); Nucleated Red Blood Cells % 0.0 %
[2025-02-25 07:16] LABS: Urine Protein, UAD Negative (Negative)
[2025-02-25 07:56] LABS: Alanine Aminotransferase 29 U/L (7-40); Albumin 4.2 g/dL (3.2-4.8); Anion Gap 7 (5-15); BUN/Creatinine Ratio 10.5 (10.0-20.0); Blood Urea Nitrogen 10 mg/dL (9-23); Calcium 8.8 mg/dL (8.7-10.4); Carbon Dioxide 28 mmol/L (20-31); Chloride 107 mmol/L (98-107); Cholesterol 172 mg/dL (< 200); Glucose 105 mg/dL (74-106); Potassium 4.4 mmol/L (3.5-5.1); Sodium 142 mmol/L (136-145); Total Protein 5.9 g/dL (5.7-8.2)
[2025-02-25 07:57] LABS: Bilirubin, Total 0.4 mg/dL (0.2-1.0); HDL Cholesterol 40 mg/dL (40-59)
[2025-02-25 07:59] LABS: Alkaline Phosphatase 39 U/L (46-116); Triglycerides 166 mg/dL (< 150)
== END 2025-02-25 17:00 | disposition home or self-care (01) ==
LOC: LAB 06:51
PROVIDERS: ATTEND Internal Medicine
DX: E78.00 Pure hypercholesterolemia, unspecified (principal); R74.8 Abnormal levels of other serum enzymes; F10.10 Alcohol abuse, uncomplicated; Z00.01 Encounter for general adult medical examination with abnormal findings
CPT/HCPCS: 36415; 80053; 80061; 81001; 83036; 84439; 84443; 85025